=== PATIENT | female | born 1970 | race American Indian/Alaskan Native ===

== ENCOUNTER 2022-01-19 12:10 | Emergency (ER) | payer OTHER ==
--- NOTE | 2022-01-19 12:27 | Emergency Department Report ---
ED Chest Pain HPI - General Chief Complaint: Chest Pain Stated Complaint: Chest wall pain PUI?: No Time Seen by Provider: 01/19/22 12:18 Source: patient, EMS ( EMS documentation not available at time of chart dictation ), RN notes reviewed, old records reviewed Mode of arrival: Stretcher Limitations: No Limitations - History of Present Illness Initial Comments: During the history and physical examination I am chaperoned by nurse Cindy Mcleod Primary CARE doctor: Wilfrido baldwin The patient is a 51-year-old female, with a reported history of hypertension, anxiety, probable paroxysmal A. fib, who is currently systemically antic oagulated on Pradaxa, who reports compliance with her anticoagulation, who also has a history of depression, who presents to the ER today with a complaint of nontraumatic left-sided chest wall pain/left inframammary pain, which started yesterday at 6:00 PM. The pain does not radiate to the back, arms or neck. There is no vomiting, diaphoresis, or exertional shortness of breath. Patient denies travel, surgery, immobilization, leg pain or leg swelling. She denies personal/family history of DVT/PE risk factors. No recent stress test that she is aware of. She reports anxiety, but denies hallucinations, and homicidality/suicidality. She is currently at [facility] on a voluntary basis for depression and anxiety. Has not taken anything for pain. MD Complaint: other -: days(s) Pain Location: other (Left lateral and inframammary chest wall pain) Pain Radiation: back (Left posterior thorax) Severity: mild Quality: aching Consistency: intermittent Improves With: nothing Worsens With: palpation Aspirin use within the Past 7 Days: (0) No - Related Data On Oral Contraceptives: No Home Medications Medication Instructions Recorded Confirmed Last Taken Metoprolol 6.25 mg PO BID 01/19/22 01/19/22 01/19/22 Pradaxa 150 mg PO BID 01/19/22 01/19/22 01/19/22 12:31 Allergies Allergy/AdvReac Type Severity Reaction Status Date / Time shellfish derived Allergy Severe Swelling Verified 01/19/22 12:29 Heart Score - HEART Score History: Slightly suspicious EKG: Normal Age: 45-65 Risk factors: 1-2 risk factors Troponin: < normal limit HEART Score: 2 - EKG Read Time Time EKG Completed: 12:14 EKG Read Time: 12:14 - Critical Actions Critical Actions: 0-3 pts:0.9-1.7%risk of adverse cardiac event.Candidate for discharge ED Review of Systems ROS: Stated complaint: CHEST PAIN Other details as noted in HPI Comment: All other systems reviewed and negative Cardiovascular: as per HPI (Left lateral chest wall pain) Psychiatric: anxiety, depression. denies: auditory hallucinations, visual hallucinations, homicidal thoughts, suicidal thoughts ED Past Medical Hx - Medications Home Medications: Home Medications Medication Instructions Recorded Confirmed Last Taken Type Metoprolol 6.25 mg PO BID 01/19/22 01/19/22 01/19/22 History Pradaxa 150 mg PO BID 01/19/22 01/19/22 01/19/22 12:31 History ED Physical Exam - General Limitations: No Limitations General appearance: alert, in no apparent distress - Head Head exam: Present: atraumatic, normocephalic - Eye Eye exam: Present: normal appearance, EOMI. Absent: nystagmus - ENT ENT exam: Present: normal exam, normal orophraynx, mucous membranes moist, normal external ear exam - Neck Neck exam: Present: normal inspection, full ROM. Absent: tenderness, meningis mus - Respiratory Respiratory exam: Present: normal lung sounds bilaterally, chest wall tenderness. Absent: respiratory distress, wheezes, rales, rhonchi, stridor - Cardiovascular Cardiovascular Exam: Present: regular rate, normal rhythm, normal heart sounds. Absent: bradycardia, tachycardia, irregular rhythm, systolic murmur, diastolic murmur, rubs, gallop - GI/Abdominal GI/Abdominal exam: Present: soft. Absent: distended, tenderness, guarding, rebound, rigid, pulsatile mass - Extremities Exam Extremities exam: Present: normal inspection, full ROM, other (2+ pulses noted in the bilateral upper and lower extremities. There is no palpable cord. negative Homans sign. Muscular compartments are soft. The pelvis is stable.). Absent: pedal edema, calf tenderness - Back Exam Back exam: Present: normal inspection, full ROM. Absent: tenderness, CVA tenderness (R), CVA tenderness (L), paraspinal tenderness, vertebral tenderness - Neurological Exam Neurological exam: Present: alert, oriented X3, normal gait, other (No facial droop. Tongue midline. Extraocular movements intact bilaterally. Facial sensation intact to light touch in V1, V2, V3 distribution bilaterally. 5 and a 5 strength in 4 extremities. Sensation intact to light touch in 4 ext remities.). Absent: motor sensory deficit - Psychiatric Psychiatric exam: Present: normal affect, normal mood - Skin Skin exam: Present: warm, dry, intact, normal color. Absent: rash ED Course Vital Signs 01/19/22 01/19/22 01/19/22 12:14 12:15 12:23 Temperature 99 F Pulse Rate 86 84 80 Respiratory 14 14 19 Rate Blood Pressure 119/86 119/86 Blood Pressure 119/86 [Right] O2 Sat by Pulse 100 99 100 Oximetry 01/19/22 01/19/22 12:31 12:35 Temperature Pulse Rate 77 82 Respiratory 16 Rate Blood Pressure 119/86 Blood Pressure [Right] O2 Sat by Pulse 100 Oximetry - Reevaluation(s) Reevaluation #1: 01/19/22 12:50 Differential diagnosis, including but not limited to: GERD, gastritis, costochondritis, hiatal hernia, anxiety, coronary artery disease Assessment and plan: 51-year-old female, who is not currently tachycardic, tachypneic or hypoxic, who denies DVT and pulmonary embolism risk factors, currently on Pradaxa for systemic anticoagulation, compliant with pradaxa, who is low risk by Wells criteria for pulmonary embolism, EKG unchanged x2, troponin negative x 1, symptoms present for 19 hours Given that symptoms of present for greater than 8 hours, myocardial infarction is ruled out with 1 set of troponin/cardiac enzymes, as per the [employer] clinical policy. Patient has equal pulses in the upper and lower extremities, no pulsatile abdominal mass, and an unremarkable x-ray of the chest, therefore, aortic disease is very unlikely. Patient at low risk for major adverse cardiac event as per heart score. Patient has reproducible chest wall I find coronary artery disease of significance to be unlikely. She does not meet criteria for 1013 hold or involuntary confinement. She is at [facility] on a voluntary basis. We will discussed with the [facility] to arrange outpatient follow-up for low risk chest pain. Discussed this with the patient. She is agreeable to this plan of care 01/19/22 14:03 Laboratory studies essentially unremarkable. Troponin negative. Chest x-ray negative. Potassium 5.5 and hemolyzed. CO2 18 reviewed and appreciated, this is most likely secondary to history of tachypnea, tachycardia, anxiety and hyperventilation. Patient resting comfortably on stretcher, in no acute distress. Contacted [facility] physician, Dr. Patrick Kat the patient's history, physical, laboratory studies EKG findings, and clinical impression. She indicates that she will have the [facility] reach out to the patient to arrange cardiology follow-up for next week. I think this plan of care is reasonable. Discharged with outpatient follow-up JONI score - Joni Score Age > 65: (0) No Aspirin use within the Past 7 Days: (0) No 3 or more CAD Risk Factors: (0) No 2 or more Angina events in past 24 hrs: (0) No Known CAD with more than 50% Stenosis: (0) No Elevated Cardiac Markers: (0) No ST Deviation Greater than 0.5mm: (0) No JONI Score: 0 ED Medical Decision Making - Lab Data Result diagrams: 01/19/22 13:08 01/19/22 13:08 Vital Signs 01/19/22 01/19/22 01/19/22 12:14 12:15 12:23 Temperature 99 F Pulse Rate 86 84 80 Respiratory 14 14 19 Rate Blood Pressure 119/86 119/86 Blood Pressure 119/86 [Right] O2 Sat by Pulse 100 99 100 Oximetry 01/19/22 01/19/22 12:31 12:35 Temperature Pulse Rate 77 82 Respiratory 16 Rate Blood Pressure 119/86 Blood Pressure [Right] O2 Sat by Pulse 100 Oximetry Lab Results 01/19/22 01/19/22 01/19/22 Range/Units 13:08 13:08 13:08 WBC 5.6 (4.5-11.0) K/mm3 RBC 4.04 (3.65-5.03) M/mm3 Hgb 13.1 (10.1-14.3) gm/dl Hct 36.7 (30.3-42.9) % MCV 91 (79-97) fl MCH 32 (28-32) pg MCHC 36 H (30-34) % RDW 14.1 (13.2-15.2) % Plt Count 328 (140-440) K/mm3 Lymph % (Auto) 19.4 (13.4-35.0) % [place] % (Auto) 10.6 H (0.0-7.3) % Eos % (Auto) 1.7 (0.0-4.3) % Baso % (Auto) 0.8 (0.0-1.8) % Lymph # (Auto) 1.1 L (1.2-5.4) K/mm3 [place] # (Auto) 0.6 (0.0-0.8) K/mm3 Eos # (Auto) 0.1 (0.0-0.4) K/mm3 Baso # (Auto) 0.0 (0.0-0.1) K/mm3 Seg Neutrophils % 67.5 (40.0-70.0) % Seg Neutrophils # 3.8 (1.8-7.7) K/mm3 PT 14.6 (12.2-14.9) Sec. INR 1.03 (0.87-1.13) APTT 25.3 (24.2-36.6) Sec. Sodium 132 L (137-145) mmol/L Potassium 5.5 H (3.6-5.0) mmol/L Chloride 99.9 (98-107) mmol/L Carbon Dioxide 18 L (22-30) mmol/L Anion Gap 20 mmol/L BUN 8 (7-17) mg/dL Creatinine 0.6 (0.6-1.2) mg/dL Estimated GFR > 60 ml/min BUN/Creatinine Ratio 13 % Glucose 103 H (65-100) mg/dL Calcium 9.6 (8.4-10.2) mg/dL Troponin T < 0.010 (0.00-0.029) ng/mL HCG, Quant (0-4) mIU/mL Salicylates (2.8-20.0) mg/dL Acetaminophen (10.0-30.0) ug/mL 01/19/22 01/19/22 01/19/22 Range/Units 13:08 13:08 13:08 WBC (4.5-11.0) K/mm3 RBC (3.65-5.03) M/mm3 Hgb (10.1-14.3) gm/dl Hct (30.3-42.9) % MCV (79-97) fl MCH (28-32) pg MCHC (30-34) % RDW (13.2-15.2) % Plt Count (140-440) K/mm3 Lymph % (Auto) (13.4-35.0) % [place] % (Auto) (0.0-7.3) % Eos % (Auto) (0.0-4.3) % Baso % (Auto) (0.0-1.8) % Lymph # (Auto) (1.2-5.4) K/mm3 [place] # (Auto) (0.0-0.8) K/mm3 Eos # (Auto) (0.0-0.4) K/mm3 Baso # (Auto) (0.0-0.1) K/mm3 Seg Neutrophils % (40.0-70.0) % Seg Neutrophils # (1.8-7.7) K/mm3 PT (12.2-14.9) Sec. INR (0.87-1.13) APTT (24.2-36.6) Sec. Sodium (137-145) mmol/L Potassium (3.6-5.0) mmol/L Chloride (98-107) mmol/L Carbon Dioxide (22-30) mmol/L Anion Gap mmol/L BUN (7-17) mg/dL Creatinine (0.6-1.2) mg/dL Estimated GFR ml/min BUN/Creatinine Ratio % Glucose (65-100) mg/dL Calcium (8.4-10.2) mg/dL Troponin T (0.00-0.029) ng/mL HCG, Quant < 2 (0-4) mIU/mL Salicylates < 0.3 L (2.8-20.0) mg/dL Acetaminophen 5.0 L (10.0-30.0) ug/mL - EKG Data -: EKG Interpreted by [place] EKG shows normal: sinus rhythm Rate: normal - EKG Data When compared to previous EKG there are: previous EKG unavailable 01/19/22 12:49 The EKG is interpreted at 12: 14 Sinus rhythm, 78 bpm. Normal axis, normal intervals, normal P wave axis. The EKG is not a STEMI. There is no prior for comparison The EKG is unchanged from the prehospital EMS EKG. - Radiology Data Radiology results: pending, report reviewed, image reviewed CHEST 1 VIEW 01/19/2022 12:32 PM INDICATION / CLINICAL INFORMATION: Chest Pain. COMPARISON: None available. FINDINGS: SUPPORT DEVICES: None. HEART / MEDIASTINUM: No significant abnormality. LUNGS / PLEURA: No significant pulmonary or pleural abnormality. No pneumothorax. ADDITIONAL FINDINGS: Hiatal hernia noted. IMPRESSION: 1. No acute findings. Signer Name: Jesse Maya MD Signed: 01/19/2022 11:45 AM Workstation Name: [id number] Critical care attestation.: If time is entered above; I have spent that time in minutes in the direct care of this critically ill patient, excluding procedure time. ED Disposition Clinical Impression: Chest wall pain, Encounter for medical screening examination, Encounter for behavioral health screening Disposition: [address] [place] [address] Is pt being admited?: No Does the pt Need Aspirin: No Condition: Good Instructions: Nonspecific Chest Pain, Adult Additional Instructions: Please continue current outpatient medications. Patient may take acetaminophen, 650 mg by mouth, every 4-6 hours as needed for chest wall pain, maximum daily dose to not exceed 3 g per 24 hours. Please follow-up with your outpatient interior block wirer within the [facility] as scheduled. The patient should receive a phone call from the [facility] shortly. Please make certain to follow-up with the outpatient interior block wirer as scheduled. Alternatively, the patient may follow-up with one of the listed interior block wirer. We recommend cardiology follow-up within the next 3 to 4 days Please return to the emergency room right away with new pain, worsened pain, migration of pain, projectile vomiting, change in mental status, confusion, inability tolerate liquid feeds, new, worsened or different symptoms not present on the initial emergency room evaluation Referrals: [facility] ESCOB[facility] [Other] - 3-5 Days [facility] [Provider Group] - 3-5 Days [facility] [Provider Group] - 3-5 Days
--- NOTE | 2022-01-19 12:49 | XRay Report ---
CHEST 1 VIEW 01/19/2022 12:32 PM INDICATION / CLINICAL INFORMATION: Chest Pain. COMPARISON: None available. FINDINGS: SUPPORT DEVICES: None. HEART / MEDIASTINUM: No significant abnormality. LUNGS / PLEURA: No significant pulmonary or pleural abnormality. No pneumothorax. ADDITIONAL FINDINGS: Hiatal hernia noted. IMPRESSION: 1. No acute findings. Signer Name: Jesse Maya MD Signed: 01/19/2022 12:45 PM Workstation Name: [id number]
[2022-01-19 13:16] LABS: Basophils % (Auto) 0.8 % (0.0-1.8); Eosinophils # (Auto) 0.1 K/mm3 (0.0-0.4); Eosinophils % (Auto) 1.7 % (0.0-4.3); Hematocrit 36.7 % (30.3-42.9); Hemoglobin 13.1 gm/dl (10.1-14.3); Lymphocytes # (Auto) 1.1 K/mm3 (1.2-5.4); Lymphocytes % (Auto) 19.4 % (13.4-35.0); Mean Corpuscular HGB Conc 36 % (30-34); Mean Corpuscular Volume 91 fl (79-97); Monocytes # (Auto) 0.6 K/mm3 (0.0-0.8); Monocytes % (Auto) 10.6 % (0.0-7.3); Platelet Count 328 K/mm3 (140-440); Red Blood Count 4.04 M/mm3 (3.65-5.03); Red Cell Distribution Width 14.1 % (13.2-15.2)
[2022-01-19 13:29] LABS: INR 1.03 (0.87-1.13)
[2022-01-19 13:30] LABS: Partial Thromboplastin Time 25.3 Sec. (24.2-36.6)
[2022-01-19 13:36] LABS: Blood Urea Nitrogen 8 mg/dL (7-17); Calcium 9.6 mg/dL (8.4-10.2); Hemolysis Index 303
[2022-01-19 13:38] LABS: BUN/Creatinine Ratio 13
[2022-01-19] MEDS ORDERED: ACETAMINOPHEN 325 MG TAB PO STA (13:44)
[2022-01-19 15:34] VITALS: BP 119/69
[2022-01-19] MEDS ORDERED: ALPRAZolam 0.25 MG TAB PO ONE (15:38)
--- NOTE | 2022-01-20 11:51 | Electrocardiograph Report ---
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
== END 2022-01-19 15:51 ==
LOC: ED 12:10
DX: R07.89 Other chest pain (principal); Z13.30 Encounter for screening examination for mental health and behavioral disorders, unspecified; Z91.013 Allergy to seafood
CPT/HCPCS: 36415; 71045; 80048; 80320; 84484; 84702; 85025; 85610; 85730; 93005; 93010; 99284; 99285; G0480